=== PATIENT | male | born 1995 | race African-American/Black ===

== ENCOUNTER 2020-01-10 12:18 | Emergency (ER) | payer BC ==
[~2020-01-10] VITALS: Ht 180.3 cm; Wt 57.0 kg
[2020-01-10] MEDS ORDERED: IBUPROFEN 600MG TABLET PO ONE (13:00)
[2020-01-10] MEDS ORDERED: AMOXICILLIN 500 MG CAPSULE PO ONE (13:00)
[2020-01-10 13:22] VITALS: BP 120/78
== END 2020-01-10 13:22 | disposition home or self-care (01) ==
LOC: ER 12:18
DX: K05.6 Periodontal disease, unspecified (principal); K02.9 Dental caries, unspecified; R03.0 Elevated blood-pressure reading, without diagnosis of hypertension
CPT/HCPCS: 99283